=== PATIENT | male | born 1955 | race Caucasian/White ===

== ENCOUNTER 2022-11-02 06:02 | Day surgery (SDC) | payer OTHER ==
[2022-10-27 14:16] VITALS: BMI 26.3
[2022-11-02] MEDS ORDERED: PROPOFOL 40 ML ONE (07:03)
[2022-11-02] MEDS ORDERED: ONDANSETRON 4 MG/2 ML VIAL ONE ×2 (07:03→08:51)
[2022-11-02] MEDS ORDERED: MIDAZOLAM HCL 2 MG/2 ML SINGLE DOSE VIAL ONE (07:03)
[2022-11-02] MEDS ORDERED: SUCCINYLCHOLINE CHLORIDE 200 MG/10 ML SYRINGE ONE (07:03)
[2022-11-02] MEDS ORDERED: DEXAMETHASONE SOD PHOSPHATE 4 MG/1 ML VIAL ONE ×2 (07:03→08:51)
[2022-11-02] MEDS ORDERED: ceFAZolin SODIUM 1 GM VIAL ONE (07:04)
[2022-11-02] MEDS ORDERED: EPINEPHrine 1:1,000 1,000 MCG/ML ML ONE (07:14)
[2022-11-02] MEDS ORDERED: BUPIVACAINE HCL/EPINEPHRINE/PF 30 ML VIAL IJ ONE (07:14)
[2022-11-02] MEDS ORDERED: ROPIVACAINE HCL 0.5% 30ML VIAL ONE (07:27)
[2022-11-02] MEDS ORDERED: SODIUM CHLORIDE 0.9% P/F 10 ML VIAL IJ ONE (08:03)
[2022-11-02] MEDS ORDERED: PHENYLEPHRINE HCL 10 MG/1 ML SINGLE DOSE VIAL ONE (08:03)
[2022-11-02 10:47] VITALS: BP 125/86; PULSE 62; RESP 16; TEMP 97.9
[2022-11-02] MEDS ORDERED: oxyCODONE HCL 5 MG TABLET PO PRN ×2 (12:54)
[2022-11-02] MEDS ORDERED: ONDANSETRON 4 MG/2 ML VIAL IVPUSH PRN (12:54)
[2022-11-02] MEDS ORDERED: LACTATED RINGERS SOLUTION 1,000 ML IV SCH (13:00)
== END 2022-11-02 10:30 | disposition home or self-care (01) ==
LOC: FASU 06:02
PROVIDERS: ATTEND Orthopaedic Surgery
PROC: 0LS40ZZ Reposition Left Upper Arm Tendon, Open Approach (ICD-10-PCS; 2022-11-02)
PROC: 0RBK4ZZ Excision of Left Shoulder Joint, Percutaneous Endoscopic Approach (ICD-10-PCS; principal; 2022-11-02 08:07)
DX: M75.112 Incomplete rotator cuff tear or rupture of left shoulder, not specified as traumatic (principal); M75.22 Bicipital tendinitis, left shoulder; M75.52 Bursitis of left shoulder
CPT/HCPCS: 88304-TC; 94760